=== PATIENT | female | born 1985 | race African-American/Black ===

== ENCOUNTER 2019-05-06 14:33 | Inpatient (IN) | payer OTHER ==
[2019-05-06 19:18] VITALS: BMI 19.3
--- NOTE | 2019-05-06 23:40 | HP ---
COWS - Scale Resting Pulse: 1= [place] 81-100 Sweatin=Flushed/Facial Moisture Restless Observation: 1= Difficult to Sit Still Pupil Size: 1= Pupils >than Normal Bone or Joint Aches: 4=Acute Joint/Muscle Pain Runny Nose/ Eye Tearin= Runny Nose/Eyes GI Upset > 30mins: 1= Stomach Cramp Tremor Observation: 2= Slight Tremor Visible Yawning Observation: 1= 1-2x During Session Anxiety or Irritability: 2=Irritable/Anxious Goose Flesh Skin: 0=Smooth Skin COWS Score: 17 CIWA Score - Admission Criteria OASAS Guidelines: Admission for Medically Managed Detox: Requires at least one of the followin. CIWA greater than 12 2. Seizures within the past 24 hours 3. Delirium tremens within the past 24 hours 4. Hallucinations within the past 24 hours 5. Acute intervention needed for co occurring medical disorder 6. Acute intervention needed for co occurring psychiatric disorder 7. Severe withdrawal that cannot be handled at a lower level of care (continued vomiting, continued diarrhea, abnormal vital signs) requiring intravenous medication and/or fluids 8. Admission ROS [facility] Chief Complaint: Heroin withdrawal symptoms Allergies/Adverse Reactions: Allergies Allergy/AdvReac Type Severity Reaction Status Date / Time No Known Allergies Allergy Verified 05/06/19 19:18 History of Present Illness: 33 years old female with eight years of heroin dependence is seeking admission to detox. Patient reports history of asthma and states that this is her first admission to [facility] . She denies suicide attempt and suicidal ideation at this time Exam Limitations: No Limitations - Ebola screening Have you traveled outside of the country in the last 21 days: No (N) Have you had contact with anyone from an Ebola affected area: No Do you have a fever: No - Review of Systems Constitutional: Chills, Malaise, Night Sweats, Changes in sleep, Weakness EENT: reports: No Symptoms Reported Respiratory: reports: No Symptoms reported Cardiac: reports: No Symptoms Reported GI: reports: Poor Appetite, Poor Fluid Intake, Vomiting, Abdominal cramping : reports: No Symptoms Reported Musculoskeletal: reports: Back Pain, Muscle Pain Integumentary: reports: Dryness, Flushing Neuro: reports: Tremors Endocrine: reports: No Symptoms Reported Hematology: reports: No Symptoms Reported Psychiatric: reports: Mood/Affect Appropiate, Orientated x3 Other Systems: Reviewed and Negative Patient History - Patient Medical History Hx Anemia: No Hx Asthma: Yes (Albuterol) Hx Chronic Obstructive Pulmonary Disease (COPD): No Hx Cancer: No Hx Cardiac Disorders: No Hx Congestive Heart Failure: No Hx Hypertension: No Hx Hypercholesterolemia: No Hx Pacemaker: No HX Cerebrovascular Accident: No Hx Seizures: No Hx Dementia: No Hx Diabetes: No Hx Gastrointestinal Disorders: No Hx Liver Disease: No Hx Genitourinary Disorders: No Hx Sexually Transmitted Disorders: No Hx Renal Disease (ESRD): No Hx Thyroid Disease: No Hx Human Immunodeficiency Virus (HIV): No (Negative 2018) Hx Hepatitis C: No Hx Depression: No Hx Suicide Attempt: No (Den ies suicidal ideation at this time) Hx Schizophrenia: No - Patient Surgical History Past Surgical History: No Hx Neurologic Surgery: No Hx Cataract Extraction: No Hx Cardiac Surgery: No Hx Lung Surgery: No Hx Breast Surgery: No Hx Breast Biopsy: No Hx Abdominal Surgery: No Hx Appendectomy: No Hx Cholecystectomy: No Hx Genitourinary Surgery: No Hx Section: No Hx Orthopedic Surgery: No Anesthesia Reaction: No - PPD History Previous Implant?: Yes Documented Results: Negative w/o proof Implanted On Prior R Admission?: No PPD to be Administered?: Yes - Reproductive History Patient is a Female of Child Bearing Age (11 -55 yrs old): Yes Last Menstrual Period: 04/30/19 Patient : No - Smoking Cessation Smoking history: Current every day smoker Have you smoked in the past 12 months: Yes Hx Chewing Tobacco Use: No Initiated information on smoking cessation: Yes 'Breaking Loose' booklet given: 05/06/19 - Substance & Tx. History Hx Alcohol Use: Yes Substance Use Type: Cocaine, Heroin, Opiates - Substances abused Heroin Other (specify): sniff Frequency: Daily Amount used: 10 bags Age of first use: 25 Date of last use: 05/06/19 Family Disease History - Family Disease History Family History: Denies Admission Physical Exam BHS - Vital Signs Vital Signs: Vital Signs - 24 hr 05/06/19 05/06/19 19:15 19:49 Temperature 97 F L 97 F L Pulse Rate 94 H 94 H Respiratory 19 19 Rate Blood Pressure 143/87 143/87 - Physical General Appearance: Yes: Within Normal Limits, Moderate Distress, Tremorous HEENTM: Yes: Hearing grossly Normal, Normal ENT Inspection Respiratory: Yes: Lungs Clear, Normal Breath Sounds, No Respiratory Distress Neck: Yes: Supple Breast: Yes: Breast Exam Deferred Cardiology: Yes: Regular Rhythm, Regular Rate Abdominal: Yes: Normal Bowel Sounds Back: Yes: Normal Inspection Musculoskeletal: Yes: Within Normal Limits Extremities: Yes: Tremors Neurological: Yes: Normal Mood/Affect Integumentary: Yes: Warm Lymphatic: Yes: Within Normal Limits - Diagnostic (1) Opioid dependence with withdrawal Current Visit: Yes Status: Acute (2) Asthma Current Visit: Yes Status: Chronic (3) Nicotine dependence Current Visit: Yes Status: Acute Qualifiers: Nicotine product type: cigarettes Substance use status: uncomplicated Qualified Code(s): F17.210 - Nicotine dependence, cigarettes, uncomplicated Cleared for Admission S - Detox or Rehab [facility] Level of Care: Medically Managed Detox Regimen/Protocol: Methadone Breathalyzer - Breathalyzer Breathalyzer: 0 Urine Drug Screen - Test Device Lot number: [id number] Expiration date: 01/25/21 - Control Is test valid?: Yes - Results Drug screen NEGATIVE: No Urine drug screen results: LORIE-Cocaine, MET-Methamphetamine, FEN-Fentanyl, MOP- Opiates, OXY-Oxycodone, BUP-Suboxone Inpatient Rehab Admission - Rehab Decision to Admit Inpatient rehab admission?: No
[2019-05-07] MEDS ORDERED: MAG HYDROX/AL HYDROX/SIMETH 30 ML UNIT-DOSE CUP PO PRN (01:26)
[2019-05-07] MEDS ORDERED: hydrOXYzine PAMOATE 25 MG CAPSULE (FP) PO PRN (01:26)
[2019-05-07] MEDS ORDERED: chlordiazePOXIDE HCL 25 MG CAPSULE PO PRN (01:26)
[2019-05-07] MEDS ORDERED: MAGNESIUM HYDROX 2400MG/30ML ORAL SUSPENSION 30 ML CUP PO PRN (01:26)
[2019-05-07] MEDS ORDERED: ACETAMINOPHEN 325 MG TABLET (FP) PO PRN (01:26)
[2019-05-07] MEDS ORDERED: BISMUTH SUBSALICYLATE 524 MG/30 ML UD PO PRN (01:26)
[2019-05-07] MEDS ORDERED: MAGNESIUM CITRATE 300 ML BOTTLE PO PRN (01:26)
[2019-05-07] MEDS ORDERED: MENTHOL/PHENOL 1 EACH UD MM PRN (01:26)
[2019-05-07] MEDS ORDERED: ALBUTEROL SO4 8 GM HFA INHALER IH SCH (01:30)
[2019-05-07] MEDS ORDERED: cloNIDine HCL 0.1 MG TABLET PO ONE (02:12)
[2019-05-07] MEDS ORDERED: cloNIDine HCL 0.1 MG TABLET PO PRN (02:20)
[2019-05-07] MEDS ORDERED: METHADONE HCL 10 MG TABLET (FOR DETOX USE ONLY) PO ONE (02:20)
[2019-05-07] MEDS: NICOTINE POLACRILEX 2 MG GUM BUC PRN ×2 (11:40→23:36)
[2019-05-07] MEDS: PRENATAL VITAMINS W/ FOLIC ACID TABLET (FP) PO SCH (11:41)
[2019-05-07] MEDS: METHOCARBAMOL 500 MG TABLET PO PRN (11:41)
[2019-05-07] MEDS: NICOTINE 14 MG/24 HOURS TOPICAL PATCH TD SCH (11:41)
--- NOTE | 2019-05-07 11:46 | PN ---
BHS COWS - Scale Resting Pulse: 0= [place] 80 or Below Sweatin= Chills/Flushing Restless Observation: 1= Difficult to Sit Still Pupil Size: 0= Normal to Room Light Bone or Joint Aches: 2= Severe Diffuse Aches Runny Nose/ Eye Tearin= Runny Nose/Eyes GI Upset > 30mins: 0= None Tremor Observation of Outstretched Hands: 2= Slight Tremor Visible Yawning Observation: 1= 1-2x During Session Anxiety or Irritability: 2=Irritable/Anxious Goose Flesh Skin: 0=Smooth Skin COWS Score: 11 [facility] Progress Note (SOAP) Subjective: sweats irritable agitation body aches chills nausea Objective: 05/07/19 11:45 Vital Signs Temperature 98.1 F 05/07/19 09:55 Pulse Rate 80 05/07/19 09:55 Respiratory Rate 16 05/07/19 09:55 Blood Pressure 119/80 05/07/19 09:55 O2 Sat by Pulse Oximetry (%) labs pending aaox3 ambulating no acute distress Assessment: 05/07/19 11:45 withdrawals Plan: continue detox increase fluids pending labs
[2019-05-07] MEDS: diazePAM 5 MG TABLET PO PRN ×2 (15:27→22:37)
[2019-05-07] MEDS: THIAMINE HCL 100 MG TABLET (FP) PO SCH (22:35)
[2019-05-07] MEDS ORDERED: chlordiazePOXIDE HCL 25 MG CAPSULE PO SCH (23:00)
[2019-05-08] MEDS ORDERED: METHADONE HCL 10 MG TABLET (FOR DETOX USE ONLY) ONE (09:19)
[2019-05-08] MEDS ORDERED: METHADONE HCL 5 MG TABLET (FOR DETOX USE ONLY) ONE (09:19)
[2019-05-08] MEDS ORDERED: METHADONE (DETOX) 20 MG, METHADONE (DETOX) 5 MG PO ONE (10:00)
[2019-05-08] MEDS: NICOTINE 14 MG/24 HOURS TOPICAL PATCH TD SCH (10:36)
[2019-05-08] MEDS: PRENATAL VITAMINS W/ FOLIC ACID TABLET (FP) PO SCH (10:36)
[2019-05-08] MEDS: diazePAM 5 MG TABLET PO PRN ×4 (10:47→22:32)
--- NOTE | 2019-05-08 11:34 | EKG ---
Test Reason : Blood Pressure : / mmHG Vent. Rate : 083 BPM Atrial Rate : 083 BPM P-R Int : 152 ms QRS Dur : 078 ms QT Int : 396 ms P-R-T Axes : 073 064 068 degrees QTc Int : 465 ms POOR DATA QUALITY, INTERPRETATION MAY BE ADVERSELY AFFECTED NORMAL SINUS RHYTHM WITH SINUS ARRHYTHMIA NORMAL ECG NO PREVIOUS ECGS AVAILABLE Confirmed by ALEX TYSON, SHIRAZ ([id number]) on 05/08/2019 11:33:40 AM Referred By: DR PINO Confirmed By:SHIRAZ JOHNSON MD
--- NOTE | 2019-05-08 11:47 | PN ---
BHS COWS - Scale Resting Pulse: 1= [place] 81-100 Sweatin=Flushed/Facial Moisture Restless Observation: 1= Difficult to Sit Still Pupil Size: 0= Normal to Room Light Bone or Joint Aches: 2= Severe Diffuse Aches Runny Nose/ Eye Tearin= Runny Nose/Eyes GI Upset > 30mins: 0= None Tremor Observation of Outstretched Hands: 1= Tremor [place], Not Seen Yawning Observation: 2= >3x During Session Anxiety or Irritability: 1=Feels Anxious/Irritable Goose Flesh Skin: 0=Smooth Skin COWS Score: 12 [facility] Progress Note (SOAP) Subjective: sweats shakes interrupted sleep body aches restless Objective: 05/08/19 11:46 Vital Signs Temperature 96.1 F L 05/08/19 09:45 Pulse Rate 84 05/08/19 09:45 Respiratory Rate 18 05/08/19 09:45 Blood Pressure 125/89 05/08/19 09:45 O2 Sat by Pulse Oximetry (%) labs pending aaox3 lying in bed no acute distress Assessment: 05/08/19 11:47 withdrawal sx Plan: continue detox labs pending increase fluids
[2019-05-08 12:28] LABS: HEMOGLOBIN 12.8 GM/dL (10.7-15.3); MCH 29.9 pg (25.7-33.7); MCHC 32.7 g/dl (32.0-36.0); MEAN CELL VOLUME 91.2 fl (80-96); MEAN PLT VOLUME 8.9 fl (7.5-11.1); PLATELET COUNT 345 K/MM3 (134-434); RBC 4.28 M/mm3 (3.60-5.2); WHITE BLOOD COUNT 9.5 K/mm3 (4.0-10.0)
[2019-05-08 12:40] LABS: ALBUMIN 2.8 g/dl (3.4-5.0); BILIRUBIN,TOTAL 0.2 mg/dL (0.2-1); BLOOD UREA NITROGEN 10.6 mg/dL (7-18); CALCIUM 8.6 mg/dL (8.5-10.1); CREATININE 0.7 mg/dL (0.55-1.3); POTASSIUM 4.5 mmol/L (3.5-5.1); TOT PROT 6.9 g/dl (6.4-8.2)
[2019-05-08] MEDS: THIAMINE HCL 100 MG TABLET (FP) PO SCH (22:08)
[2019-05-08] MEDS: NICOTINE POLACRILEX 2 MG GUM BUC PRN (22:09)
[2019-05-08] MEDS: MELATONIN 5 MG TABLETS PO PRN (22:33)
[2019-05-09] MEDS ORDERED: chlordiazePOXIDE HCL 25 MG CAPSULE PO SCH (05:00)
[2019-05-09] MEDS ORDERED: METHADONE HCL 10 MG TABLET (FOR DETOX USE ONLY) PO ONE (10:00)
[2019-05-09] MEDS: NICOTINE POLACRILEX 2 MG GUM BUC PRN ×2 (10:25→22:13)
[2019-05-09] MEDS: NICOTINE 14 MG/24 HOURS TOPICAL PATCH TD SCH (10:25)
[2019-05-09] MEDS: PRENATAL VITAMINS W/ FOLIC ACID TABLET (FP) PO SCH (10:25)
--- NOTE | 2019-05-09 13:29 | PN ---
BHS COWS - Scale Resting Pulse: 1= [place] 81-100 Sweatin= Chills/Flushing Restless Observation: 1= Difficult to Sit Still Pupil Size: 0= Normal to Room Light Bone or Joint Aches: 2= Severe Diffuse Aches Runny Nose/ Eye Tearin= Nasal Congestion GI Upset > 30mins: 0= None Tremor Observation of Outstretched Hands: 1= Tremor [place], Not Seen Yawning Observation: 1= 1-2x During Session Anxiety or Irritability: 1=Feels Anxious/Irritable Goose Flesh Skin: 0=Smooth Skin COWS Score: 9 [facility] Progress Note (SOAP) Subjective: sweats anxiety body aches interrupted sleep Objective: 05/09/19 13:29 Vital Signs Temperature 97.9 F 05/09/19 09:37 Pulse Rate 96 H 05/09/19 09:37 Respiratory Rate 05/09/19 09:37 Blood Pressure 130/91 05/09/19 09:37 O2 Sat by Pulse Oximetry (%) Laboratory Tests 05/08/19 05/08/19 05/08/19 09:00 09:00 09:00 WBC 9.5 RBC 4.28 Hgb 12.8 Hct 39.0 MCV 91.2 MCH 29.9 MCHC 32.7 RDW 18.0 H Plt Count 345 MPV 8.9 Sodium 139 Potassium 4.5 Chloride 106 Carbon Dioxide 29 Anion Gap 4 L BUN 10.6 Creatinine 0.7 Est GFR (CKD-EPI)AfAm 130.10 Est GFR (CKD-EPI)NonAf 112.25 Random Glucose 87 Calcium 8.6 Total Bilirubin 0.2 AST 11 L ALT 15 Alkaline Phosphatase 122 H Total Protein 6.9 Albumin 2.8 L RPR Titer Nonreactive labs noted aaox3 ambulating no acute distress Assessment: 05/09/19 13:30 withdrawal sx Plan: continue detox increase fluids
[2019-05-09] MEDS: diazePAM 5 MG TABLET PO PRN ×2 (14:59→22:10)
[2019-05-09] MEDS: THIAMINE HCL 100 MG TABLET (FP) PO SCH (22:11)
[2019-05-09] MEDS: MELATONIN 5 MG TABLETS PO PRN (22:12)
[2019-05-10] MEDS ORDERED: chlordiazePOXIDE HCL 10 MG CAPSULE PO PRN
[2019-05-10] MEDS ORDERED: chlordiazePOXIDE HCL 10 MG CAPSULE PO SCH (05:00)
[2019-05-10] MEDS: NICOTINE POLACRILEX 2 MG GUM BUC PRN ×2 (08:50→22:29)
[2019-05-10] MEDS ORDERED: METHADONE HCL 5 MG TABLET (FOR DETOX USE ONLY) ONE (09:18)
[2019-05-10] MEDS ORDERED: METHADONE HCL 10 MG TABLET (FOR DETOX USE ONLY) ONE (09:18)
[2019-05-10] MEDS ORDERED: METHADONE (DETOX) 10 MG, METHADONE (DETOX) 5 MG PO ONE (10:00)
[2019-05-10] MEDS: PRENATAL VITAMINS W/ FOLIC ACID TABLET (FP) PO SCH (10:07)
[2019-05-10] MEDS: NICOTINE 14 MG/24 HOURS TOPICAL PATCH TD SCH (10:07)
[2019-05-10] MEDS: diazePAM 5 MG TABLET PO PRN (10:07)
--- NOTE | 2019-05-10 13:57 | PN ---
BHS COWS - Scale Resting Pulse: 1= [place] 81-100 Sweatin= No chills or Flushing Restless Observation: 1= Difficult to Sit Still Pupil Size: 0= Normal to Room Light Bone or Joint Aches: 1= Mild Discomfort Runny Nose/ Eye Tearin= None GI Upset > 30mins: 0= None Tremor Observation of Outstretched Hands: 1= Tremor [place], Not Seen Yawning Observation: 0= None Anxiety or Irritability: 2=Irritable/Anxious Goose Flesh Skin: 0=Smooth Skin COWS Score: 6 [facility] Progress Note (SOAP) Subjective: anxiety sweats restless Objective: 05/10/19 13:57 Vital Signs Temperature 97.2 F L 05/10/19 09:43 Pulse Rate 97 H 05/10/19 09:43 Respiratory Rate 18 05/10/19 09:43 Blood Pressure 127/93 05/10/19 09:43 O2 Sat by Pulse Oximetry (%) aaox3 ambulating no acute distress Assessment: 05/10/19 13:57 mild withdrawals Plan: continue detox
[2019-05-10] MEDS: IBUPROFEN 400 MG TABLET (FP) PO PRN ×2 (14:02→22:26)
[2019-05-10] MEDS ORDERED: hydrOXYzine PAMOATE 50 MG CAPSULE (FP) PO PRN (18:31)
[2019-05-10] MEDS ORDERED: hydrOXYzine PAMOATE 25 MG CAPSULE (FP) PO PRN (18:33)
[2019-05-10] MEDS ORDERED: diazePAM 5 MG TABLET PO ONE (19:00)
[2019-05-10] MEDS: THIAMINE HCL 100 MG TABLET (FP) PO SCH (22:26)
[2019-05-10] MEDS: cloNIDine HCL 0.1 MG TABLET PO PRN (22:26)
[2019-05-10] MEDS: MELATONIN 5 MG TABLETS PO PRN (22:28)
[2019-05-11] MEDS: ACETAMINOPHEN 325 MG TABLET (FP) PO PRN ×2 (00:37→22:34)
[2019-05-11] MEDS: METHOCARBAMOL 500 MG TABLET PO PRN (00:37)
[2019-05-11] MEDS ORDERED: chlordiazePOXIDE HCL 10 MG CAPSULE PO SCH (05:00)
[2019-05-11] MEDS ORDERED: METHADONE HCL 10 MG TABLET (FOR DETOX USE ONLY) PO ONE (10:00)
[2019-05-11] MEDS: PRENATAL VITAMINS W/ FOLIC ACID TABLET (FP) PO SCH (10:44)
[2019-05-11] MEDS: NICOTINE 14 MG/24 HOURS TOPICAL PATCH TD SCH (10:44)
[2019-05-11] MEDS: cloNIDine HCL 0.1 MG TABLET PO PRN (10:44)
[2019-05-11] MEDS: NICOTINE POLACRILEX 2 MG GUM BUC PRN ×3 (10:45→22:35)
[2019-05-11] MEDS: IBUPROFEN 400 MG TABLET (FP) PO PRN ×3 (10:46→23:33)
--- NOTE | 2019-05-11 13:26 | PN ---
BHS COWS - Scale Resting Pulse: 1= [place] 81-100 Sweatin= No chills or Flushing Restless Observation: 0= Sits Still Pupil Size: 0= Normal to Room Light Bone or Joint Aches: 0= None Runny Nose/ Eye Tearin= None GI Upset > 30mins: 0= None Tremor Observation of Outstretched Hands: 0= None Yawning Observation: 1= 1-2x During Session Anxiety or Irritability: 2=Irritable/Anxious Goose Flesh Skin: 0=Smooth Skin COWS Score: 4 S Progress Note (SOAP) Subjective: c/o anxiety and irritability, and sweats. Objective: 05/11/19 13:25 Vital Signs 05/11/19 05/11/19 07:38 09:28 Temperature 97.7 F 97.7 F Pulse Rate 88 93 H Respiratory 18 18 Rate Blood Pressure 126/97 121/76 Lab Results WBC 9.5 K/mm3 (4.0-10.0) 05/08/19 09:00 RBC 4.28 M/mm3 (3.60-5.2) 05/08/19 09:00 Hgb 12.8 GM/dL (10.7-15.3) 05/08/19 09:00 Hct 39.0 % (32.4-45.2) 05/08/19 09:00 MCV 91.2 fl (80-96) 05/08/19 09:00 MCHC 32.7 g/dl (32.0-36.0) 05/08/19 09:00 RDW 18.0 % (11.6-15.6) H 05/08/19 09:00 Plt Count 345 K/MM3 (134-434) 05/08/19 09:00 Sodium 139 mmol/L (136-145) 05/08/19 09:00 Potassium 4.5 mmol/L (3.5-5.1) 05/08/19 09:00 Chloride 106 mmol/L (98-107) 05/08/19 09:00 Carbon Dioxide 29 mmol/L (21-32) 05/08/19 09:00 Anion Gap 4 MMOL/L (8-16) L 05/08/19 09:00 BUN 10.6 mg/dL (7-18) 05/08/19 09:00 Creatinine 0.7 mg/dL (0.55-1.3) 05/08/19 09:00 Random Glucose 87 mg/dL (74-106) 05/08/19 09:00 Calcium 8.6 mg/dL (8.5-10.1) 05/08/19 09:00 Labs noted. Assessment: 05/11/19 13:26 AOX3, in no acute respiratory distress. Full ROM, ambulating in the unit. Mild withdrawal symptoms. Plan: continue detox.
[2019-05-11] MEDS: THIAMINE HCL 100 MG TABLET (FP) PO SCH (22:32)
[2019-05-11] MEDS: MELATONIN 5 MG TABLETS PO PRN (22:33)
[2019-05-12] MEDS ORDERED: chlordiazePOXIDE HCL 10 MG CAPSULE PO ONE (05:00)
[2019-05-12] MEDS: NICOTINE POLACRILEX 2 MG GUM BUC PRN (06:00)
[2019-05-12] MEDS ORDERED: METHADONE HCL 5 MG TABLET (FOR DETOX USE ONLY) PO ONE (06:00)
[2019-05-12] MEDS: IBUPROFEN 400 MG TABLET (FP) PO PRN (06:42)
[2019-05-12 08:26] VITALS: BP 128/74; PULSE 93; TEMP 97.9
--- NOTE | 2019-05-12 13:53 | DS ---
[facility] Detox Discharge Summary Admission Date: 05/06/19 Discharge Date: 05/12/19 - History Present History: Opioid Dependence - Physical Exam Results Vital Signs: Vital Signs Temperature 97.9 F 05/12/19 08:26 Pulse Rate 93 H 05/12/19 08:26 Respiratory Rate 17 05/12/19 08:26 Blood Pressure 128/74 05/12/19 08:26 O2 Sat by Pulse Oximetry (%) Pertinent Admission Physical Exam Findings: ROS denies CP, SOB and dizziness PE: alert and oriented x 3 skin warm and dry perrla, eoms intact bl ext full rom, no tremors amb ad nabeel - Treatment Hospital Course: Detox Protocol Followed, Detoxed Safely, Responded well, Discharged Condition Good Patient has Accepted a Rehab Referral to: Encouraged to follow up with NA - Medication Discharge Medications: Ambulatory Orders Albuterol Sulfate [Albuterol Sulfate Hfa] 1 puff IH PRN 05/06/19 - AMA Did Patient Leave Against Medical Advice: No
== END 2019-05-12 08:50 | disposition home or self-care (01) | DRG 773 ==
LOC: YASAS 14:33 → Y6N 22:40
PROVIDERS: ADMIT Surgery; ATTEND Surgery
PROC: HZ2ZZZZ Detoxification Services for Substance Abuse Treatment (ICD-10-PCS; principal; 2019-05-06)
DX: F11.23 Opioid dependence with withdrawal (principal); F17.210 Nicotine dependence, cigarettes, uncomplicated; J45.909 Unspecified asthma, uncomplicated
CPT/HCPCS: 36415; 80053; 85027; 86593; 93005; 93010; J0735

== ENCOUNTER 2019-10-25 15:33 | Inpatient (IN) | payer OTHER ==
--- NOTE | 2019-10-25 19:13 | HP ---
COWS - Scale Resting Pulse: 1= [place] 81-100 Sweatin=Flushed/Facial Moisture Restless Observation: 0= Sits Still Pupil Size: 1= Pupils >than Normal Bone or Joint Aches: 4=Acute Joint/Muscle Pain Runny Nose/ Eye Tearin= Nasal Congestion GI Upset > 30mins: 1= Stomach Cramp Tremor Observation: 2= Slight Tremor Visible Yawning Observation: 1= 1-2x During Session Anxiety or Irritability: 2=Irritable/Anxious Goose Flesh Skin: 0=Smooth Skin COWS Score: 15 CIWA Score - Admission Criteria OASAS Guidelines: Admission for Medically Managed Detox: Requires at least one of the followin. CIWA greater than 12 2. Seizures within the past 24 hours 3. Delirium tremens within the past 24 hours 4. Hallucinations within the past 24 hours 5. Acute intervention needed for co occurring medical disorder 6. Acute intervention needed for co occurring psychiatric disorder 7. Severe withdrawal that cannot be handled at a lower level of care (continued vomiting, continued diarrhea, abnormal vital signs) requiring intravenous medication and/or fluids 8. Admitting History and Physical - Past Medical History ...LMP: 04/30/19 - Smoking History Smoking history: Current every day smoker Have you smoked in the past 12 months: Yes - Alcohol/Substance Use Hx Alcohol Use: Yes Admission ROS [facility] Chief Complaint: Heroin withdrawal symptoms Allergies/Adverse Reactions: Allergies Allergy/AdvReac Type Severity Reaction Status Date / Time No Known Allergies Allergy Verified 05/06/19 19:18 History of Present Illness: 34 years old female with eight years of heroin dependence is seeking admission to detox. Patient reports history of asthma and denies psych. history, suicide attempt and suicidal ideation at this time Exam Limitations: No Limitations - Ebola screening Have you traveled outside of the country in the last 21 days: No Have you been sick,other than usual withdrawal symptoms: No Do you have a fever: No - Review of Systems Constitutional: Chills, Malaise, Night Sweats, Changes in sleep EENT: reports: Nose Congestion Respiratory: reports: No Symptoms reported Cardiac: reports: No Symptoms Reported GI: reports: Nausea, Poor Fluid Intake, Abdominal cramping : reports: No Symptoms Reported Musculoskeletal: reports: Back Pain, Muscle Pain Integumentary: reports: Dryness, Flushing Neuro: reports: Tremors Endocrine: reports: No Symptoms Reported Hematology: reports: No Symptoms Reported Psychiatric: reports: Mood/Affect Appropiate, Orientated x3, Agitated, Anxious Other Systems: Reviewed and Negative Patient History - Patient Medical History Hx Anemia: No Hx Asthma: Yes (Albuterol) Hx Chronic Obstructive Pulmonary Disease (COPD): No Hx Cancer: No Hx Cardiac Disorders: No Hx Congestive Heart Failure: No Hx Hypertension: No Hx Hypercholesterolemia: No Hx Pacemaker: No HX Cerebrovascular Accident: No Hx Seizures: No Hx Dementia: No Hx Diabetes: No Hx Gastrointestinal Disorders: No Hx Liver Disease: No Hx Genitourinary Disorders: No Hx Sexually Transmitted Disorders: No Hx Renal Disease (ESRD): No Hx Thyroid Disease: No Hx Human Immunodeficiency Virus (HIV): No (Negative 2018) Hx Hepatitis C: No Hx Depression: No Hx Suicide Attempt: No (Denies attempt/suicidal ideation at this time) Hx Bipolar Disorder: No Hx Schizophrenia: No - Patient Surgical History Past Surgical History: No Hx Neurologic Surgery: No Hx Cataract Extraction: No Hx Cardiac Surgery: No Hx Lung Surgery: No Hx Breast Surgery: No Hx Breast Biopsy: No Hx Abdominal Surgery: No Hx Appendectomy: No Hx Cholecystectomy: No Hx Genitourinary Surgery: No Hx Section: No Hx Orthopedic Surgery: No Anesthesia Reaction: No - PPD History Previous Implant?: Yes Documented Results: Negative w/o proof Implanted On Prior [facility] Admission?: No PPD to be Administered?: Yes - Reproductive History Patient is a Female of Child Bearing Age (11 -55 yrs old): Yes Last Menstrual Period: 10/09/19 - Smoking Cessation Smoking history: Current every day smoker Have you smoked in the past 12 months: Yes Aproximately how many cigarettes per day: 6 Hx Chewing Tobacco Use: No Initiated information on smoking cessation: Yes 'Breaking Loose' booklet given: 10/25/19 - Substance & Tx. History Hx Substance Use: Yes Substance Use Type: Cocaine, Heroin, Tranquilizers Hx Substance Use Treatment: Yes ([facility]) - Substances abused Heroin Substance route: Inhalation Frequency: Daily Amount used: 6 bags Age of first use: 26 Date of last use: 10/25/19 Cocaine Substance route: Inhalation Frequency: Daily Amount used: 20 dollars Age of first use: 26 Date of last use: 10/25/19 Admission Physical Exam BHS - Physical General Appearance: Yes: Moderate Distress, Tremorous, Sweating, Anxious HEENTM: Yes: Within Normal Limits, Normal ENT Inspection Respiratory: Yes: Lungs Clear, Normal Breath Sounds, No Respiratory Distress Neck: Yes: Within Normal Limits Breast: Yes: Breast Exam Deferred Cardiology: Yes: Within Normal Limits Abdominal: Yes: Within Normal Limits Genitourinary: Yes: Within Normal Limits Back: Yes: Normal Inspection Musculoskeletal: Yes: Back pain, Muscle Pain Extremities: Yes: Tremors Neurological: Yes: Within Normal Limits, Alert, Normal Mood/Affect Integumentary: Yes: Warm Lymphatic: Yes: Within Normal Limits - Diagnostic (1) Nicotine dependence Current Visit: Yes Status: Chronic Qualifiers: Nicotine product type: cigarettes Substance use status: uncomplicated Qualified Code(s): F17.210 - Nicotine dependence, cigarettes, uncomplicated (2) Opioid dependence with withdrawal Current Visit: Yes Status: Acute (3) Asthma Current Visit: Yes Status: Chronic Qualifiers: Asthma severity: mild Asthma persistence: unspecified Cleared for Admission S - Detox or Rehab [facility] Level of Care: Medically Managed Detox Regimen/Protocol: Methadone Breathalyzer - Breathalyzer Breathalyzer: 0 Urine Drug Screen - Test Device Lot number: [id number] Expiration date: 07/27/21 - Control Is test valid?: Yes - Results Drug screen NEGATIVE: No Urine drug screen results: LORIE-Cocaine, MET-Methamphetamine, FEN-Fentanyl, MOP- Opiates Inpatient Rehab Admission - Rehab Decision to Admit Inpatient rehab admission?: No
--- NOTE | 2019-10-25 19:13 | BHS.RME ---
Substance Use & Tx History - Last Treatment Where was last treatment: Detox COWS - Scale Resting Pulse: 1= [place] 81-100 Sweatin=Flushed/Facial Moisture Restless Observation: 0= Sits Still Pupil Size: 1= Pupils >than Normal Bone or Joint Aches: 4=Acute Joint/Muscle Pain Runny Nose/ Eye Tearin= Nasal Congestion GI Upset > 30mins: 1= Stomach Cramp Tremor Observation: 2= Slight Tremor Visible Yawning Observation: 1= 1-2x During Session Anxiety or Irritability: 2=Irritable/Anxious Goose Flesh Skin: 0=Smooth Skin COWS Score: 15
[2019-10-25] MEDS ORDERED: IBUPROFEN 400 MG TABLET (FP) PO PRN (19:23)
[2019-10-25] MEDS ORDERED: MAGNESIUM CITRATE 300 ML BOTTLE PO PRN (19:23)
[2019-10-25] MEDS ORDERED: MAGNESIUM HYDROX 2400MG/30ML ORAL SUSPENSION 30 ML CUP PO PRN (19:23)
[2019-10-25] MEDS ORDERED: MAG HYDROX/AL HYDROX/SIMETH 30 ML UNIT-DOSE CUP PO PRN (19:23)
[2019-10-25] MEDS ORDERED: BISMUTH SUBSALICYLATE 524 MG/30 ML UD PO PRN (19:23)
[2019-10-25] MEDS ORDERED: ACETAMINOPHEN 325 MG TABLET (FP) PO PRN ×2 (19:23)
[2019-10-25] MEDS ORDERED: METHOCARBAMOL 500 MG TABLET PO PRN (19:23)
[2019-10-25] MEDS ORDERED: cloNIDine HCL 0.1 MG TABLET PO PRN (19:23)
[2019-10-25] MEDS ORDERED: MENTHOL/PHENOL 1 EACH UD MM PRN (19:23)
[2019-10-25] MEDS ORDERED: MELATONIN 5 MG TABLETS PO PRN (19:23)
[2019-10-25] MEDS ORDERED: NICOTINE POLACRILEX 2 MG GUM BUC PRN (19:25)
[2019-10-25 19:32] VITALS: BMI 19.3
[2019-10-25] MEDS ORDERED: METHADONE HCL 10 MG TABLET (FOR DETOX USE ONLY) PO ONE (20:00)
[2019-10-25] MEDS: THIAMINE HCL 100 MG TABLET (FP) PO SCH (21:26)
[2019-10-26 09:43] LABS: HEMATOCRIT 38.1 % (32.4-45.2); HEMOGLOBIN 12.8 GM/dL (10.7-15.3); MCH 31.8 pg (25.7-33.7); MCHC 33.5 g/dl (32.0-36.0); MEAN CELL VOLUME 94.7 fl (80-96); MEAN PLT VOLUME 9.3 fl (7.5-11.1); PLATELET COUNT 300 K/MM3 (134-434); RBC 4.02 M/mm3 (3.60-5.2); RDW 14.2 % (11.6-15.6); WHITE BLOOD COUNT 8.5 K/mm3 (4.0-10.0)
[2019-10-26] MEDS ORDERED: METHADONE HCL 5 MG TABLET (FOR DETOX USE ONLY) PO ONE (10:00)
[2019-10-26 10:18] LABS: BILIRUBIN,TOTAL 0.4 mg/dL (0.2-1); CALCIUM 7.8 mg/dL (8.5-10.1); CREATININE 0.8 mg/dL (0.55-1.3); POTASSIUM 4.4 mmol/L (3.5-5.1); TOT PROT 6.6 g/dl (6.4-8.2)
--- NOTE | 2019-10-26 10:54 | PN ---
BHS COWS - Scale Resting Pulse: 0= RI 80 or Below Sweatin= Chills/Flushing Restless Observation: 1= Difficult to Sit Still Pupil Size: 0= Normal to Room Light Bone or Joint Aches: 2= Severe Diffuse Aches Runny Nose/ Eye Tearin= None GI Upset > 30mins: 1= Stomach Cramp Tremor Observation of Outstretched Hands: 2= Slight Tremor Visible Yawning Observation: 1= 1-2x During Session Anxiety or Irritability: 2=Irritable/Anxious Goose Flesh Skin: 0=Smooth Skin COWS Score: 10 [facility] Progress Note (SOAP) Subjective: c/o muscle aches, stomach cramps, headache, anxiety, and sweats. Objective: 10/26/19 10:53 Vital Signs 10/26/19 10/26/19 10/26/19 03:30 06:59 09:06 Temperature 98.4 F 97.0 F L Pulse Rate 55 L 71 Respiratory 18 16 18 Rate Blood Pressure 126/81 128/70 Laboratory Last Values WBC 8.5 K/mm3 (4.0-10.0) 10/26/19 07:20 RBC 4.02 M/mm3 (3.60-5.2) 10/26/19 07:20 Hgb 12.8 GM/dL (10.7-15.3) 10/26/19 07:20 Hct 38.1 % (32.4-45.2) 10/26/19 07:20 MCV 94.7 fl (80-96) 10/26/19 07:20 MCH 31.8 pg (25.7-33.7) 10/26/19 07:20 MCHC 33.5 g/dl (32.0-36.0) 10/26/19 07:20 RDW 14.2 % (11.6-15.6) D 10/26/19 07:20 Plt Count 300 K/MM3 (134-434) 10/26/19 07:20 MPV 9.3 fl (7.5-11.1) 10/26/19 07:20 Sodium 141 mmol/L (136-145) 10/26/19 07:20 Potassium 4.4 mmol/L (3.5-5.1) 10/26/19 07:20 Chloride 110 mmol/L (98-107) H 10/26/19 07:20 Carbon Dioxide 28 mmol/L (21-32) 10/26/19 07:20 Anion Gap 4 MMOL/L (8-16) L 10/26/19 07:20 BUN 21.0 mg/dL (7-18) H 10/26/19 07:20 Creatinine 0.8 mg/dL (0.55-1.3) 10/26/19 07:20 Est GFR (CKD-EPI)AfAm 109.93 10/26/19 07:20 Est GFR (CKD-EPI)NonAf 94.85 10/26/19 07:20 Random Glucose 87 mg/dL (74-106) 10/26/19 07:20 Calcium 7.8 mg/dL (8.5-10.1) L 10/26/19 07:20 Total Bilirubin 0.4 mg/dL (0.2-1) 10/26/19 07:20 AST 12 U/L (15-37) L 10/26/19 07:20 ALT 17 U/L (13-61) 10/26/19 07:20 Alkaline Phosphatase 112 U/L (45-117) 10/26/19 07:20 Total Protein 6.6 g/dl (6.4-8.2) 10/26/19 07:20 Albumin 3.0 g/dl (3.4-5.0) L 10/26/19 07:20 RPR Titer Nonreactive (NONREACTIVE) 10/26/19 07:20 Labs noted. Assessment: 10/26/19 10:53 AOX3, in no respiratory distress. Full ROM, ambulating in the unit. Withdrawal symptoms. Plan: continue detox. Increase fluids.
[2019-10-26] MEDS: PRENATAL VITAMINS W/ FOLIC ACID TABLET (FP) PO SCH (11:27)
[2019-10-26] MEDS: NICOTINE 14 MG/24 HOURS TOPICAL PATCH TD SCH (11:27)
--- NOTE | 2019-10-26 13:12 | EKG ---
Test Reason : Blood Pressure : / mmHG Vent. Rate : 082 BPM Atrial Rate : 082 BPM P-R Int : 154 ms QRS Dur : 082 ms QT Int : 402 ms P-R-T Axes : 079 076 073 degrees QTc Int : 469 ms NORMAL SINUS RHYTHM WITH SINUS ARRHYTHMIA WHEN COMPARED WITH ECG OF 07-MAY-2019 01:38, NO SIGNIFICANT CHANGE WAS FOUND Confirmed by KATIA CAMP MD ([id number]) on 10/26/2019 1:11:39 PM Referred By: YANDEL Confirmed By:KATIA CAMP MD
[2019-10-26] MEDS: THIAMINE HCL 100 MG TABLET (FP) PO SCH (22:31)
[2019-10-27] MEDS ORDERED: METHADONE HCL 10 MG TABLET (FOR DETOX USE ONLY) PO ONE (10:00)
--- NOTE | 2019-10-27 10:16 | PN ---
[facility] COWS - Scale Resting Pulse: 0= NE 80 or Below Sweatin= No chills or Flushing Restless Observation: 0= Sits Still Pupil Size: 0= Normal to Room Light Bone or Joint Aches: 1= Mild Discomfort Runny Nose/ Eye Tearin= Nasal Congestion GI Upset > 30mins: 1= Stomach Cramp Tremor Observation of Outstretched Hands: 1= Tremor [place], Not Seen Yawning Observation: 1= 1-2x During Session Anxiety or Irritability: 1=Feels Anxious/Irritable Goose Flesh Skin: 0=Smooth Skin COWS Score: 6 [facility] Progress Note (SOAP) Subjective: 34 years old female admitted on 10/25/19 for opiate withdrawal sx management treating with methadone detox regiment feeling better today mild general body aches tolerating food and fluid well discuss medication assisted treatment program case picker narcan for pharmacy Objective: 10/27/19 10:14 Vital Signs Temperature 97.1 F L 10/27/19 05:58 Pulse Rate 53 L 10/27/19 05:58 Respiratory Rate 16 10/27/19 05:58 Blood Pressure 120/83 10/27/19 05:58 O2 Sat by Pulse Oximetry (%) Laboratory Last Values WBC 8.5 K/mm3 (4.0-10.0) 10/26/19 07:20 RBC 4.02 M/mm3 (3.60-5.2) 10/26/19 07:20 Hgb 12.8 GM/dL (10.7-15.3) 10/26/19 07:20 Hct 38.1 % (32.4-45.2) 10/26/19 07:20 MCV 94.7 fl (80-96) 10/26/19 07:20 MCH 31.8 pg (25.7-33.7) 10/26/19 07:20 MCHC 33.5 g/dl (32.0-36.0) 10/26/19 07:20 RDW 14.2 % (11.6-15.6) D 10/26/19 07:20 Plt Count 300 K/MM3 (134-434) 10/26/19 07:20 MPV 9.3 fl (7.5-11.1) 10/26/19 07:20 Sodium 141 mmol/L (136-145) 10/26/19 07:20 Potassium 4.4 mmol/L (3.5-5.1) 10/26/19 07:20 Chloride 110 mmol/L (98-107) H 10/26/19 07:20 Carbon Dioxide 28 mmol/L (21-32) 10/26/19 07:20 Anion Gap 4 MMOL/L (8-16) L 10/26/19 07:20 BUN 21.0 mg/dL (7-18) H 10/26/19 07:20 Creatinine 0.8 mg/dL (0.55-1.3) 10/26/19 07:20 Est GFR (CKD-EPI)AfAm 109.93 10/26/19 07:20 Est GFR (CKD-EPI)NonAf 94.85 10/26/19 07:20 Random Glucose 87 mg/dL (74-106) 10/26/19 07:20 Calcium 7.8 mg/dL (8.5-10.1) L 10/26/19 07:20 Total Bilirubin 0.4 mg/dL (0.2-1) 10/26/19 07:20 AST 12 U/L (15-37) L 10/26/19 07:20 ALT 17 U/L (13-61) 10/26/19 07:20 Alkaline Phosphatase 112 U/L (45-117) 10/26/19 07:20 Total Protein 6.6 g/dl (6.4-8.2) 10/26/19 07:20 Albumin 3.0 g/dl (3.4-5.0) L 10/26/19 07:20 RPR Titer Nonreactive (NONREACTIVE) 10/26/19 07:20 lab noted 10/27/19 10:15 low Ca++ encourage ca++ rich food Assessment: 10/27/19 10:15 opiate withdrawal Plan: methadone regiment
[2019-10-27] MEDS: NICOTINE 14 MG/24 HOURS TOPICAL PATCH TD SCH (10:48)
[2019-10-27] MEDS: PRENATAL VITAMINS W/ FOLIC ACID TABLET (FP) PO SCH (10:48)
[2019-10-27 15:14] VITALS: BP 144/76; PULSE 86; TEMP 97.1
--- NOTE | 2019-10-27 15:27 | DS ---
[facility] Detox Discharge Summary Admission Date: 10/25/19 Discharge Date: 10/27/19 - History Present History: Opioid Dependence Additional Comments: 34 years old female admitted on 10/25/19 for opiate withdrawal sx management treated [facility] methadone detox regiment Ms Gray prefers to leave the detox unit today rather than estimated discharge day of 10/28/19 alert oriented x 3 respiratory clear lungs bilaterally on auscultation extremities full range of motion skin warm and dry Pertinent Past History: time for discharge 36 minutes patient prefers to go home than go to [facility] rehab for recovery - Physical Exam Results Vital Signs: Vital Signs Temperature 97.1 F L 10/27/19 15:13 Pulse Rate 86 10/27/19 15:13 Respiratory Rate 16 10/27/19 15:13 Blood Pressure 144/76 10/27/19 15:13 O2 Sat by Pulse Oximetry (%) Pertinent Admission Physical Exam Findings: opiate withdrawal Laboratory Last Values WBC 8.5 K/mm3 (4.0-10.0) 10/26/19 07:20 RBC 4.02 M/mm3 (3.60-5.2) 10/26/19 07:20 Hgb 12.8 GM/dL (10.7-15.3) 10/26/19 07:20 Hct 38.1 % (32.4-45.2) 10/26/19 07:20 MCV 94.7 fl (80-96) 10/26/19 07:20 MCH 31.8 pg (25.7-33.7) 10/26/19 07:20 MCHC 33.5 g/dl (32.0-36.0) 10/26/19 07:20 RDW 14.2 % (11.6-15.6) D 10/26/19 07:20 Plt Count 300 K/MM3 (134-434) 10/26/19 07:20 MPV 9.3 fl (7.5-11.1) 10/26/19 07:20 Sodium 141 mmol/L (136-145) 10/26/19 07:20 Potassium 4.4 mmol/L (3.5-5.1) 10/26/19 07:20 Chloride 110 mmol/L (98-107) H 10/26/19 07:20 Carbon Dioxide 28 mmol/L (21-32) 10/26/19 07:20 Anion Gap 4 MMOL/L (8-16) L 10/26/19 07:20 BUN 21.0 mg/dL (7-18) H 10/26/19 07:20 Creatinine 0.8 mg/dL (0.55-1.3) 10/26/19 07:20 Est GFR (CKD-EPI)AfAm 109.93 10/26/19 07:20 Est GFR (CKD-EPI)NonAf 94.85 10/26/19 07:20 Random Glucose 87 mg/dL (74-106) 10/26/19 07:20 Calcium 7.8 mg/dL (8.5-10.1) L 10/26/19 07:20 Total Bilirubin 0.4 mg/dL (0.2-1) 10/26/19 07:20 AST 12 U/L (15-37) L 10/26/19 07:20 ALT 17 U/L (13-61) 10/26/19 07:20 Alkaline Phosphatase 112 U/L (45-117) 10/26/19 07:20 Total Protein 6.6 g/dl (6.4-8.2) 10/26/19 07:20 Albumin 3.0 g/dl (3.4-5.0) L 10/26/19 07:20 RPR Titer Nonreactive (NONREACTIVE) 10/26/19 07:20 lab noted low calcium encourage over the counter calcium supplement - Treatment Hospital Course: Detox Protocol Followed, Detoxed Safely, Responded well, Discharged Condition Good, Rehab Referral Accepted Patient has Accepted a Rehab Referral to: [facility] - Medication Discharge Medications: Ambulatory Orders Albuterol Sulfate [Albuterol Sulfate Hfa] 1 puff IH PRN 05/06/19 Naloxone HCl [Narcan] 4 mg NS ASDIR PRN #1 spray 10/27/19 - Diagnosis (1) Opioid dependence with withdrawal Current Visit: Yes Status: Acute (2) Asthma Current Visit: Yes Status: Chronic Qualifiers: Asthma severity: mild Asthma persistence: intermittent Asthma complication type: with status asthmaticus Qualified Code(s): J45.22 - Mild intermittent asthma with status asthmaticus (3) Nicotine dependence Current Visit: Yes Status: Acute Qualifiers: Nicotine product type: cigarettes Substance use status: in withdrawal Qualified Code(s): F17.213 - Nicotine dependence, cigarettes, with withdrawal - AMA Did Patient Leave Against Medical Advice: No COWS (PN) - Opiate Withdrawal Resting Pulse: 1= [place] 81-100 Sweatin= No chills or Flushing Restless Observation: 0= Sits Still Pupil Size: 0= Normal to Room Light Bone or Joint Aches: 1= Mild Discomfort Runny Nose/ Eye Tearin= Nasal Congestion GI Upset > 30mins: 0= None Tremor Observation of Outstretched Hands: 1= Tremor [place], Not Seen Yawning Observation: 1= 1-2x During Session Anxiety or Irritability: 1=Feels Anxious/Irritable Goose Flesh Skin: 0=Smooth Skin COWS Score: 6
[2019-10-28] MEDS ORDERED: METHADONE HCL 5 MG TABLET (FOR DETOX USE ONLY) PO ONE (06:00)
== END 2019-10-27 16:05 | disposition home or self-care (01) | DRG 773 ==
LOC: YASAS 15:33 → Y3N 19:45
PROVIDERS: ADMIT Allergy & Immunology; ATTEND Allergy & Immunology
PROC: HZ2ZZZZ Detoxification Services for Substance Abuse Treatment (ICD-10-PCS; principal; 2019-10-25)
DX: F11.23 Opioid dependence with withdrawal (principal); F14.20 Cocaine dependence, uncomplicated; F17.210 Nicotine dependence, cigarettes, uncomplicated; J45.22 Mild intermittent asthma with status asthmaticus; E83.51 Hypocalcemia
CPT/HCPCS: 36415; 80053; 81025; 85027; 86593; 93005; 93010; J0735